=== PATIENT | female | born 1945 | race Caucasian/White ===

== ENCOUNTER 2017-06-14 11:58 | Outpatient (CLI) | payer MEDICARE, MEDICAID ==
[2017-06-14 12:45] LABS: ALT (SGPT) 17 U/L (8-55); AST (SGOT) 17 U/L (5-34); Albumin 3.8 g/dL (3.4-4.8); Alkaline Phosphatase 151 U/L (40-150); Anion Gap 14 mmol/L (10-20); BUN (Urea Nitrogen) 14 mg/dL (9.8-20.1); Bilirubin, Total 0.4 mg/dL (0.2-1.2); Calc. Creatinine Clearance 0 mL/min (70-130); Calcium 9.4 mg/dL (7.8-10.44); Carbon Dioxide 30 mmol/L (23-31); Cardiac Risk 2.5 (Less than 4.5); Chloride 101 mmol/L (98-107); Cholesterol 197 mg/dl (< 200 Desired); Estimated GFR-MDRD 64; Globulin 3.9 g/dL (2.4-3.5); Glucose 94 mg/dL (80-115); HDL Cholesterol 80 mg/dL (>60 Neg Risk); LDL Cholesterol, Calculated 97 mg/dL; Potassium 3.6 mmol/L (3.5-5.1); Protein, Total 7.7 g/dL (6.0-8.3); Sodium 141 mmol/L (136-145); Triglycerides 100 mg/dL (Less than 150)
--- NOTE | 2017-06-14 14:30 | RAD ---
TWO VIEWS LEFT KNEE: Date: 06-14-17 History: Closed fracture a couple of months ago. Comparison: 04-16-17 FINDINGS: Splint material overlies the knee. There is a nondisplaced fracture again involving the right proxim al tibial diaphysis as well as the junction of the proximal left fibular neck. No significant callus formation is seen about the fractures. There is diffuse osteopenia. There is no evidence of a dislo cation. IMPRESSION: Fracture involving the proximal left tibia and fibula not significantly changed compared to the prio r study on 04-16-17. No significant callous formation is seen about the fracture sites. POS: [facility]
--- NOTE | 2017-06-14 14:34 | RAD ---
TWO VIEWS LEFT TIBIA AND FIBULA: Date: 06-14-17 History: Fracture involving the left tibia and fibula. Follow up evaluation. Comparison: 04-16-17 FINDINGS: Splint material overlies the posterior aspect of the left lower extremity. Previously seen fractures involving the proximal left tibial diaphysis as well as neck of the proxim al fibula are again seen. There is no significant callus formation about the fractures. No additiona l fracture or dislocation is seen. There is diffuse osteopenia. IMPRESSION: 1. Stable fracture involving the proximal left tibia and fibula without significant callus formation to suggest significant interval healing; although, the fracture lucencies are less perceptible. 2. Diffuse osteopenia. POS: [facility]
== END 2017-06-14 11:59 | disposition home or self-care (01) ==
LOC: MADLAB 11:58
PROVIDERS: ATTEND Orthopaedic Surgery
DX: S82.302D Unspecified fracture of lower end of left tibia, subsequent encounter for closed fracture with routine healing (principal); E03.9 Hypothyroidism, unspecified; M85.80 Other specified disorders of bone density and structure, unspecified site; S82.102D Unspecified fracture of upper end of left tibia, subsequent encounter for closed fracture with routine healing; S82.832D Other fracture of upper and lower end of left fibula, subsequent encounter for closed fracture with routine healing
CPT/HCPCS: 36415; 80053; 80061; 84443

== ENCOUNTER 2021-05-29 10:16 | Emergency (ER) | payer MEDICARE, OTHER, MEDICAID ==
[2021-05-29] MEDS ORDERED: Ondansetron PF 4 MG/2 ML Vial ONE (10:37)
[2021-05-29] MEDS ORDERED: Sodium Chloride 0.9% 1,000 ML ONE ×2 (10:37→13:56)
[2021-05-29 11:26] LABS: #Basophils 0.2 thou/uL (0.0-0.2); #Lymphocytes 4.6 thou/uL (1.20-3.40); #Monocytes 0.7 thou/uL (0.11-0.59); #Neutrophils 10.5 thou/uL (1.40-6.50); %Basophils 1.2 % (0.0-1.0); %Eosinophils 5.8 % (0.0-10.0); %Monocytes 4.4 % (0.0-10.0); %Neutrophils 61.8 % (42.0-75.0); Anisocytosis SLIGHT = 6-15 cells (100X) (0-5/hpf); Hemoglobin 12.9 g/dL (12.0-16.0); Hypochromia SLIGHT = 6-15 cells (100X) (0-5/hpf); MDiff Complete? YES; Mean Corpuscular Hemoglobin 27.3 pg (27.0-31.0); Mean Corpuscular Volume 91.2 fL (78.0-98.0); Platelet Count 438 thou/uL (130-400); Platelet Morphology Comment Appears Increased; RBC Distribution Width 14.6 % (11.5-14.5); Red Blood Cell (RBC) Count 4.72 mill/uL (4.20-5.40); White Blood Cell (WBC) Count 16.9 thou/uL (4.8-10.8)
[2021-05-29 11:30] LABS: ALT (SGPT) 18 U/L (8-55); AST (SGOT) 19 U/L (5-34); Albumin 3.7 g/dL (3.4-4.8); Alkaline Phosphatase 127 U/L (40-110); Anion Gap 17 mmol/L (10-20); BUN (Urea Nitrogen) 14 mg/dL (9.8-20.1); Bilirubin, Total 0.2 mg/dL (0.2-1.2); Calc. Creatinine Clearance 0 mL/min (70-130); Carbon Dioxide 26 mmol/L (23-31); Chloride 99 mmol/L (98-107); Globulin 3.5 g/dL (2.4-3.5); Glucose 149 mg/dL (83-110); Potassium 4.2 mmol/L (3.5-5.1); Protein, Total 7.2 g/dL (5.8-8.1); Sodium 138 mmol/L (136-145)
[2021-05-29] MEDS ORDERED: Clindamycin/D5W 600 mg/50 ml Premix Bag ONE (12:11)
[2021-05-29 12:15] LABS: Bilirubin Negative (Negative); Blood, Urine Small (Negative); Clarity Cloudy (Clear); Glucose, Urine (Dipstick) Negative (Negative); Ketone, Urine Negative (Negative); Leukocyte Large (Negative); Nitrite Positive (Negative); Protein, Urine (Dipstick) 100 mg/dL (Neg-Trace); pH, Urine 7.5 (5.0-9.0)
[2021-05-29 12:26] LABS: Bacteria/HPF 3+ HPF (None Seen); RBC/HPF 0-3 HPF (0-3); Squamous Epithelial 0-3 HPF (0-3); WBC/HPF Greater than 50 HPF (0-3)
[2021-05-29] MEDS ORDERED: cefTRIAXone\\ROCEPHIN 1 GM VIAL ONE (14:02)
[2021-05-29 14:11] LABS: SARS-CoV-2 NAA Rapid Test Not Detected (NotDetected)
[2021-05-29 15:05] LABS: Lactic Acid 2.1 mmol/L (0.5-2.2)
== END 2021-05-29 16:00 | disposition short-term general hospital (02) ==
LOC: MADERS 10:16
DX: J44.1 Chronic obstructive pulmonary disease with (acute) exacerbation (principal); N39.0 Urinary tract infection, site not specified; Z20.822 Contact with and (suspected) exposure to COVID-19; I10 Essential (primary) hypertension; E78.5 Hyperlipidemia, unspecified; E11.9 Type 2 diabetes mellitus without complications; Z86.73 Personal history of transient ischemic attack (TIA), and cerebral infarction without residual deficits
CPT/HCPCS: 71045; 80053; 83605; 83880; 84484; 85025; 87040; 87077; 87086; 87186; 93005; U0002; 81003; 81015; 96374; 96375; J0696; J2405; J3490; J7050; J7620